=== PATIENT | female | born 1950 | race Caucasian/White ===

== ENCOUNTER 2021-02-17 02:00 | Emergency (ER) | payer OTHER ==
[~2021-02-17] VITALS: Ht 160 cm; Wt 63.2 kg
[2021-02-17 02:05] VITALS: BP 181/90
--- NOTE | 2021-02-17 02:08 | NUR ---
TO LOBBY A/W BED AMBULATORY
--- NOTE | 2021-02-17 03:42 | NUR ---
PT AMB TO CHAIR A
[2021-02-17] MEDS ORDERED: CARBAMIDE PEROXIDE 6.5% OT 15 ML BTL OT ONE (03:55)
--- NOTE | 2021-02-17 04:17 | NUR ---
Dr. Coppola examining patient.
[2021-02-17] MEDS ORDERED: CIPR10SU RIGHT EAR (04:28)
[2021-02-17] MEDS ORDERED: CARB15DR61 OT (04:28)
[2021-02-17 04:42] VITALS: BP 150/79
== END 2021-02-17 04:17 | disposition home or self-care (01) ==
LOC: MED 02:00
DX: H93.13 Tinnitus, bilateral (principal); H61.21 Impacted cerumen, right ear; I10 Essential (primary) hypertension; Z79.2 Long term (current) use of antibiotics; Z79.899 Other long term (current) drug therapy
CPT/HCPCS: 99282

== ENCOUNTER 2021-06-13 01:14 | Emergency (ER) | payer OTHER ==
[~2021-06-13] VITALS: Ht 160 cm; Wt 63.0 kg
[~2021-06-13 01:14] MED LIST: CARB15DR61 OT; CIPR10SU RIGHT EAR
[2021-06-13 01:20] VITALS: BP 184/102
--- NOTE | 2021-06-13 01:25 | NUR ---
PT TO LOBBY
[2021-06-13 04:42] VITALS: BP 185/90
--- NOTE | 2021-06-13 04:42 | NUR ---
Patient discharged with v/s stable. Written and verbal after care instructions given and explained. Patient verbalized understanding. Ambulatory with steady gait. All questions addressed prior to discharge. Advised to follow up with PMD.
== END 2021-06-13 04:42 | disposition home or self-care (01) ==
LOC: MED 01:14
DX: I10 Essential (primary) hypertension (principal); Z79.2 Long term (current) use of antibiotics; Z79.899 Other long term (current) drug therapy
CPT/HCPCS: 99281

== ENCOUNTER 2022-02-04 15:12 | Emergency (ER) | payer OTHER ==
[~2022-02-04] VITALS: Ht 160 cm; Wt 61.7 kg
[2022-02-04 15:31] VITALS: BP 134/88
--- NOTE | 2022-02-04 15:49 | NUR ---
DR VELAZQUEZ ON TRIAGE FOR EVAL
[2022-02-04 16:15] LABS: BASOPHILS % (AUTO) 0.4 % (0.0-2.0); HEMOGLOBIN 13.5 g/dL (12.0-16.0); LYMPHOCYTES # (AUTO) 1.3 K/uL (2.5-16.5); LYMPHOCYTES % (AUTO) 18.3 % (20.5-51.1); MEAN CORPUSCULAR HEMOGLOBIN 27 pg (27-31); MEAN CORPUSCULAR HGB CONC 34 g/dL (33-37); MEAN CORPUSCULAR VOLUME 81.2 fL (80-94); MONOCYTES # (AUTO) 0.7 K/uL (0.8-1.0); MONOCYTES % (AUTO) 9.4 % (1.7-9.3); NEUTROPHILS # (AUTO) 5.3 K/uL (1.8-7.7); NEUTROPHILS % (AUTO) 71.9 % (42.2-75.2); PLATELET COUNT (AUTO) 244 K/uL (140-450); RED BLOOD CELL COUNT(AUTO) 4.93 MIL/uL (4.20-5.40); RED CELL DISTRIBUTION WIDTH 13.4 % (11.6-13.7); WHITE BLOOD COUNT (AUTO) 7.3 K/uL (4.8-10.8)
[2022-02-04 16:34] LABS: ALBUMIN 3.6 g/dL (3.4-5.0); ANION GAP 13.4 (8-16); ASPARTATE AMINOTRANSFERASE 34 U/L (15-37); CARBON DIOXIDE 29.2 mmol/L (21-32); CHLORIDE 87 mmol/L (98-107); CREATININE 1.3 mg/dL (0.6-1.3); GLUCOSE 140 mg/dL (74-106); POTASSIUM 3.6 mmol/L (3.5-5.1); SODIUM SERUM 126 mmol/L (136-145); TOTAL BILIRUBIN 0.2 mg/dL (0.0-1.0); UREA NITROGEN, BLOOD 10 mg/dL (7-18)
[2022-02-04] MEDS ORDERED: NACL 0.9% 1,000 ML IV ONE (16:45)
--- NOTE | 2022-02-04 17:29 | NUR ---
Patient ambulated with steady gait to ER bed 2.
--- NOTE | 2022-02-04 17:30 | NUR ---
JALEN SWAB COLLECTED AND WALKED TO LAB
--- NOTE | 2022-02-04 17:48 | NUR ---
71/F PRESENTS TO ED WITH C/O DYSURIA, WEAKNESS AND SHAKINESS X4 DAYS, PATIENT REPORTS TWO EPISODES OF VOMITING TWO DAYS AGO. PATIENT DENIES ABD PAIN, FEVERS, OR CHILLS, STATES SHE TOOK TYLENOL YESTERDAY WITH SOME RELIEF. PATIENT DENIES CP, DIARRHEA, CONSTIPATION, DIZZINESS OR VISION CHANGES.
[2022-02-04 17:53] LABS: APPEARANCE,URINE CLEAR (CLEAR); BILIRUBIN,URINE NEGATIVE (NEGATIVE); BLOOD, URINE TRACE-I (NEGATIVE); COLOR,URINE YELLOW (YELLOW); LEUKOCYTE ESTERASE ,URINE TRACE (NEGATIVE); NITRITE, URINE NEGATIVE (NEGATIVE); PH,URINE 7.5 (5.0-9.0); UGLUCOSE NEGATIVE (NEGATIVE)
[2022-02-04] MEDS ORDERED: cefTRIAXone 1,000 MG VIAL ONE (17:53)
[2022-02-04 18:05] LABS: RBC,URINE NONE SEEN /HPF (0-5); WBC,URINE NONE SEEN /HPF (0-5)
[2022-02-04 18:06] LABS: YEAST,URINE None Seen /HPF (None Seen)
[2022-02-04] MEDS ORDERED: LEVO-481 PO (18:06)
[2022-02-04] MEDS ORDERED: ONDA-188 PO (18:07)
[2022-02-04] MEDS ORDERED: IBUP-1842 PO (18:07)
[2022-02-04] MEDS ORDERED: NIRM1TAB PO (18:34)
--- NOTE | 2022-02-04 18:35 | NUR ---
IV removed, catheter intact and site benign. Applied folded 4x4 gauze and tape to stop bleeding.
--- NOTE | 2022-02-04 18:37 | NUR ---
Patient discharged with v/s stable. Written and verbal after care instructions ABOUT UTI given and explained. Patient alert, oriented and verbalized understanding of instructions. Ambulatory with steady gait. All questions addressed prior to discharge. ID band removed. Patient advised to follow up with PMD. Rx of MOTRIN, LEVOFLOXACIN, AND ZOFRAN ODT, PLAXOVID given. Patient educated on indication of medication including possible reaction and side effects. Opportunity to ask questions provided and answered.
== END 2022-02-04 18:37 | disposition home or self-care (01) ==
LOC: MED 15:12
DX: N39.0 Urinary tract infection, site not specified (principal); Z20.822 Contact with and (suspected) exposure to COVID-19; E87.1 Hypo-osmolality and hyponatremia; R30.0 Dysuria; R53.1 Weakness; R10.9 Unspecified abdominal pain; I10 Essential (primary) hypertension; Z79.899 Other long term (current) drug therapy
CPT/HCPCS: 36415; 80053; 81001; 85025; 87086; 87426; 96365; 99284; J0696; J7030

== ENCOUNTER 2023-07-10 16:27 | Emergency (ER) | payer OTHER ==
[~2023-07-10] VITALS: Ht 160 cm; Wt 59.9 kg
[~2023-07-10 16:27] MED LIST changes: +IBUP-1842 PO; +LEVO-481 PO; +NIRM1TAB PO; +ONDA-188 PO
[2023-07-10 17:21] VITALS: BP 127/75; PULSE 80; RESP 19; TEMP 97.8; O2SAT 99
[2023-07-10 19:05] LABS: BASOPHILS # (AUTO) 0.1 K/uL (0.00-0.22); BASOPHILS % (AUTO) 1.6 % (0.0-2.0); EOSINOPHILS % (AUTO) 0.2 % (0.0-4.0); HEMATOCRIT 39.5 % (36-48); HEMOGLOBIN 13.5 g/dL (12.0-16.0); LYMPHOCYTES # (AUTO) 1.6 K/uL (2.5-16.5); LYMPHOCYTES % (AUTO) 34.2 % (20.5-51.1); MEAN CORPUSCULAR HEMOGLOBIN 28 pg (27-31); MEAN CORPUSCULAR HGB CONC 34 g/dL (33-37); MEAN CORPUSCULAR VOLUME 80.3 fL (80-94); MONOCYTES # (AUTO) 0.6 K/uL (0.8-1.0); MONOCYTES % (AUTO) 13.6 % (1.7-9.3); NEUTROPHILS # (AUTO) 2.4 K/uL (1.8-7.7); NEUTROPHILS % (AUTO) 50.4 % (42.2-75.2); PLATELET COUNT (AUTO) 224 K/uL (140-450); RED BLOOD CELL COUNT(AUTO) 4.93 MIL/uL (4.20-5.40); RED CELL DISTRIBUTION WIDTH 13.8 % (11.6-13.7); WHITE BLOOD COUNT (AUTO) 4.7 K/uL (4.8-10.8)
[2023-07-10 19:30] LABS: PHOSPHORUS 3.4 mg/dL (2.5-4.9); THYROID STIMULATING HORMONE 10.12 uIU/mL (0.34-3.74)
[2023-07-10 19:31] LABS: ANION GAP 9.7 (8-16); CALCIUM 8.8 mg/dL (8.5-10.1); CHLORIDE 93 mmol/L (98-107); GLUCOSE 106 mg/dL (74-106); POTASSIUM 3.7 mmol/L (3.5-5.1); SODIUM SERUM 133 mmol/L (136-145); UREA NITROGEN, BLOOD 12 mg/dL (7-18)
[2023-07-10 19:50] VITALS: O2SAT 99
[2023-07-10] MEDS: NACL 0.9% 1,000 ML IV ONE (20:23)
[2023-07-10 22:28] VITALS: BP 167/74; PULSE 73; RESP 16; TEMP 97.9; O2SAT 97
== END 2023-07-10 22:28 | disposition home or self-care (01) ==
LOC: MED 16:27
DX: E87.1 Hypo-osmolality and hyponatremia (principal); E86.0 Dehydration; E03.8 Other specified hypothyroidism; I10 Essential (primary) hypertension; Z79.899 Other long term (current) drug therapy; Z79.1 Long term (current) use of non-steroidal anti-inflammatories (NSAID); Z79.2 Long term (current) use of antibiotics
CPT/HCPCS: 36415; 71045; 80048; 81002; 82533; 83735; 83930; 84100; 84439; 84443; 84550; 85025; 96360; 99284; J7030